=== PATIENT | female | born 1930 | race Caucasian/White ===

== ENCOUNTER 2017-09-06 23:50 | Inpatient (IN) | payer OTHER ==
[2017-09-07] MEDS ORDERED: DEXAMETHASONE 10 MG/ML VIAL ONE (00:09)
[2017-09-07] MEDS ORDERED: METHYLPREDNISOLONE 125 MG INJ ONE (00:09)
[2017-09-07] MEDS ORDERED: NITROGLYCERIN 1 GM PKT TD ONE (00:09)
[2017-09-07] MEDS ORDERED: ONDANSETRON 4 MG/2 ML VIAL ONE (00:09)
[2017-09-07] MEDS ORDERED: IPRATROPIUM BROM 0.5MG/2.5ML ONE ×6 (00:09→21:22)
[2017-09-07] MEDS ORDERED: ALBUTEROL 2.5 MG/3 ML NEB SOL ONE ×6 (00:09→21:22)
[2017-09-07] MEDS ORDERED: FUROSEMIDE 40 MG/4 ML VIAL ONE (00:10)
[2017-09-07] MEDS ORDERED: NA CHLORIDE 0.9% 1,000 ML ONE ×5 (00:51→17:39)
[2017-09-07 00:58] LABS: Arterial Blood Carboxyhemoglob 0.8 % (0-1.5); Blood Gas Oxyhemoglobin 97.3 % (94-97); Blood O2 Saturation 98.7 % (92-98.5)
[2017-09-07] MEDS ORDERED: Levofloxacin500mg IV 500 MG/100 ML BAG IV ONE (00:58)
[2017-09-07] MEDS ORDERED: ACETAMINOPHEN 650MG/RECT SUPP PR ONE (00:58)
[2017-09-07] MEDS ORDERED: PIPER/TAZO/NS 3.375gm 3.375 GM/100 ML BAG ONE ×3 (00:58→17:39)
[2017-09-07 01:03] LABS: Absolute Lymphocytes (CBC) 0.7 K/uL (0.7-4.9); Absolute Monocytes 2.7 K/uL (0.1-1.3); Absolute Neutrophil 17.7 K/uL (1.8-8.0); Basophils % 0.2 % (0-1.3); Hematocrit 41.1 % (36.0-45.0); Lymphocytes % 3.5 % (15.3-44.8); MCH 28.8 pg (27.0-35.0); MCV 89.5 fL (80-100); MPV 9.5 fL (7.6-11.3); Monocytes % 12.6 % (3.3-12.3); RBC Red Blood Cell Count 4.59 M/uL (3.86-4.86)
[2017-09-07 01:09] LABS: Protime INR 1.88
[2017-09-07 01:15] LABS: Potassium 3.2 mEq/L (3.6-5.0)
--- NOTE | 2017-09-07 01:15 | EDPHYS ---
Physician Documentation [facility] Name: Alona Angulo Age: 86 yrs Sex: Female : 1930 Arrival Date: 09/06/2017 Time: 23:52 Bed 4 Private MD: ED Physician Arvin Thorne HPI: 09/06 23:57 This 86 yrs old Female presents to ER via EMS with complaints of Shortness Of summer Breath. 23:57 The patient has shortness of breath at rest. Onset: The symptoms/episode began/occurred summer just prior to arrival. Duration: The symptoms are continuous, and are unchanged since they started. The patient's shortness of breath has no apparent modifying factors. Associated signs and symptoms: The patient has no apparent associated signs or symptoms. Severity of symptoms: At their worst the symptoms were moderate in the emergency department the symptoms are unchanged. The patient has not experienced similar symptoms in the past. Historical: - Allergies: 23:58 No Known Allergies; bp - PMHx: 23:58 Alzheimers; Atrial Fib; CHF; Colonic polyps; GERD; Hypertension; Myocardial infarction; bp PULMONARY EMBOLISM; - PSHx: 23:58 Thyroidectomy; Hysterectomy; VENA CAVA FILTER; bp - Immunization history:: Adult Immunizations up to date. - Social history:: Smoking status: Patient/guardian denies using tobacco. - Family history:: not pertinent. ROS: 23:57 Constitutional: Negative for fever, chills, and weight loss, Eyes: Negative for injury, summer pain, redness, and discharge, ENT: Negative for injury, pain, and discharge, Neck: Negative for injury, pain, and swelling, Cardiovascular: Negative for chest pain, palpitations, and edema, Abdomen/GI: Negative for abdominal pain, nausea, vomiting, diarrhea, and constipation, Back: Negative for injury and pain, : Negative for injury, bleeding, discharge, and swelling, MS/Extremity: Negative for injury and deformity, Skin: Negative for injury, rash, and discoloration, Neuro: Negative for headache, weakness, numbness, tingling, and seizure, Psych: Negative for depression, anxiety, suicide ideation, homicidal ideation, and hallucinations, Allergy/Immunology: Negative for hives, rash, and allergies, Endocrine: Negative for neck swelling, polydipsia, polyuria, polyphagia, and marked weight changes, Hematologic/Lymphatic: Negative for swollen nodes, abnormal bleeding, and unusual bruising. 23:57 Respiratory: Positive for cough, shortness of breath, wheezing, inspiratory, expiratory. Exam: 23:57 Constitutional: This is a well developed, well nourished patient who is awake, alert, summer and in no acute distress. Head/Face: Normocephalic, atraumatic. Eyes: Pupils equal round and reactive to light, extra-ocular motions intact. Lids and lashes normal. Conjunctiva and sclera are non-icteric and not injected. Cornea within normal limits. Periorbital areas with no swelling, redness, or edema. ENT: Nares patent. No nasal discharge, no septal abnormalities noted. Tympanic membranes are normal and external auditory canals are clear. Oropharynx with no redness, swelling, or masses, exudates, or evidence of obstruction, uvula midline. Mucous membranes moist. Neck: Trachea midline, no thyromegaly or masses palpated, and no cervical lymphadenopathy. Supple, full range of motion without nuchal rigidity, or vertebral point tenderness. No Meningismus. Chest/axilla: Normal chest wall appearance and motion. Nontender with no deformity. No lesions are appreciated. Cardiovascular: Regular rate and rhythm with a normal S1 and S2. No gallops, murmurs, or rubs. Normal PMI, no JVD. No pulse deficits. Abdomen/GI: Soft, non-tender, with normal bowel sounds. No distension or tympany. No guarding or rebound. No evidence of tenderness throughout. Back: No spinal tenderness. No costovertebral tenderness. Full range of motion. Female : Normal external genitalia. Skin: Warm, dry with normal turgor. Normal color with no rashes, no lesions, and no evidence of cellulitis. MS/ Extremity: Pulses equal, no cyanosis. Neurovascular intact. Full, normal range of motion. Neuro: Awake and alert, GCS 15, oriented to person, place, time, and situation. Cranial nerves II-XII grossly intact. Motor strength 5/5 in all extremities. Sensory grossly intact. Cerebellar exam normal. Normal gait. Psych: Awake, alert, with orientation to person, place and time. Behavior, mood, and affect are within normal limits. 23:57 Respiratory: moderate respiratory distress is noted, Respirations: labored breathing, that is moderate, Breath sounds: bronchial sounds, decreased breath sounds, rhonchi, wheezing: inspiratory expiratory that is moderate. Vital Signs: 23:58 Weight 72.57 kg (R); bp 18 00:06 BP 117 / 97; Pulse 116; Resp 20; Pulse Ox 99% on BiPAP; mt 00:27 BP 131 / 80; Pulse 106; Resp 24; Temp 102.4(C); Pulse Ox 99% on BiPAP; mt 00:39 BP 65 / 36; Pulse 99; Resp 18; Pulse Ox 99% on BiPAP; mt 01:00 BP 58 / 41; Pulse 102; Resp 18; Pulse Ox 100% on BiPAP; mt 01:02 BP 55 / 42; Pulse 95; Resp 18; Pulse Ox 96% on BiPAP; mt 01:02 BP 64 / 42 RA (man/); mt 01:21 BP 60 / 50; Pulse 97; Resp 20; Temp 101.8(C); Pulse Ox 98% on BiPAP; mt 01:30 BP 92 / 54; Pulse 85; Resp 22; Temp 100.5; Pulse Ox 96% ; bp 01:47 BP 90 / 71; Pulse 83; Resp 23; Temp 99.9(C); Pulse Ox 99% on BiPAP; mt 02:00 BP 100 / 53; Pulse 83; Resp 20; Temp 99.5; Pulse Ox 99% ; bp 04:05 BP 99 / 50; Pulse 88; Resp 20; Pulse Ox 98% on BiPAP; mt 05:13 BP 92 / 48; Pulse 77; Resp 20; Temp 98.8(C); Pulse Ox 98% on BiPAP; mt MDM: 09/06 23:55 Patient medically screened. [facility] 23:57 Data reviewed: vital signs, nurses notes, lab test result(s), EKG, radiologic studies, summer plain films. 09/06 23:57 Order name: Basic Metabolic Panel [facility] 09/06 23:57 Order name: BNP [facility] 09/06 23:57 Order name: CBC with Diff [facility] 09/06 23:57 Order name: Ckmb [facility] 09/06 23:57 Order name: CPK [facility] 09/06 23:57 Order name: LFT's [facility] 09/06 23:57 Order name: Magnesium [facility] 09/06 23:57 Order name: PT-INR [facility] 09/06 23:57 Order name: Ptt, Activated [facility] 09/06 23:57 Order name: Troponin (emerg Dept Use Only) [facility] 09/06 23:57 Order name: Lipase [facility] 09/06 23:57 Order name: Blood Culture Adult (2) [facility] 09/06 23:57 Order name: Procalcitonin [facility] 09/06 23:57 Order name: Urine Culture [facility] 09/06 23:57 Order name: BIPAP [facility] 09/07 00:04 Order name: ABG; Complete Time: 01:[address] [facility] 09/07 00:13 Order name: Chest Single View [facility] 09/07 00:35 Order name: Urine Dipstick--Ancillary (enter results) em1 09/07 03:06 Order name: Manual Differential [facility] 09/07 08:33 Order name: Troponin I [facility] 09/07 12:24 Order name: Troponin I [facility] 09/07 14:31 Order name: Vancomycin Level Trough [facility] 09/07 20:59 Order name: Troponin I [facility] 09/06 23:57 Order name: EKG; Complete Time: 00:[address] [facility] 09/06 23:57 Order name: Cardiac monitoring; Complete Time: 00:[address] [facility] 09/06 23:57 Order name: EKG - Nurse/Tech; Complete Time: 00:[address] [facility] 09/06 23:57 Order name: IV Saline Lock; Complete Time: 00:[address] [facility] 09/06 23:57 Order name: Labs collected and sent; Complete Time: 00:[address] [facility] 09/06 23:57 Order name: O2 Per Protocol; Complete Time: 00:[address] [facility] 09/06 23:57 Order name: O2 Sat Monitoring; Complete Time: 00:[address] [facility] 09/06 23:57 Order name: Urine Dipstick-Ancillary (obtain specimen); Complete Time: 00:[address] [facility] 09/06 23:57 Order name: Menendez; Complete Time: 00:[address] [facility] Administered Medications: 09/07 00:15 Drug: Lasix 40 mg Route: IVP; Site: left antecubital; bp 00:39 Follow up: Response: No adverse reaction bp 00:15 Drug: SOLU-Medrol 125 mg Route: IVP; Site: left antecubital; bp 00:39 Follow up: Response: No adverse reaction bp 00:15 Drug: Decadron - Dexamethasone 10 mg Route: IVP; Site: left antecubital; bp 00:38 Follow up: Response: No adverse reaction bp 00:15 Drug: Zofran 4 mg Route: IVP; Site: left antecubital; bp 00:38 Follow up: Response: No adverse reaction bp 00:32 Drug: Albuterol - atroVENT (3:1) (2.5 mg - 0.5 mg) 3 ml Route: Nebulizer; bp 01:17 Follow up: Response: Marked relief of symptoms bp 00:32 Not Given (med not available): morphine 2 mg IVP once bp 01:00 Drug: Zosyn 3.375 grams Route: IVPB; Infused Over: 60 mins; Site: left antecubital; bp 02:10 Follow up: IV Status: Completed infusion; IV Intake: 100ml bp 01:00 Drug: LevaQUIN 500 mg Volume: 100 ml; Route: IVPB; Infused Over: 60 mins; Site: left bp antecubital; 02:09 Follow up: IV Status: Completed infusion; IV Intake: 100ml bp 01:00 Drug: NS 0.9% 1000 ml Route: IV; Rate: 1 bolus; Site: right forearm; bp 02:09 Follow up: IV Status: Completed infusion; IV Intake: 1000ml bp 01:00 Drug: Tylenol Suppository 650 mg Route: HI; bp 02:08 Follow up: Response: Temperature is decreased bp 01:01 Drug: NS 0.9% 1000 ml Route: IV; Rate: 1 bolus; Site: left antecubital; ao 02:09 Follow up: IV Status: Completed infusion bp 01:17 Not Given (Hemodynamic Parameters): Nitro-Bid Ointment 2 % 1 inches Transdermal once bp 13:00 Drug: vancoMYCIN 1 grams Route: IVPB; Infused Over: 2 hrs; Site: right forearm; ae1 Disposition: 09/07/17 01:14 Hospitalization ordered by Maty Rojas for Inpatient Admission. Preliminary diagnosis are Dyspnea, Hypoxemia, Hypotension, Atrial fibrillation and flutter, Unspecified bacterial pneumonia. - Bed requested for Intensive Care Unit. - Status is Inpatient Admission. jd3 - Condition is Serious. - Problem is new. - Symptoms have improved. UTI on Admission? No Signatures: Dispatcher [employer] EDRichelle Killian rg2 Sherice Nevarez RN RN mw Anderson, Corey, MD MD cha Ortiz, Alex, RN RN ao Elliott, Andrea, RN RN ae1 Jose Marinelli RN RN jd3 Braulio Kim RN RN bp Corrections: (The following items were deleted from the chart) 00:52 00:26 Chest Single View+RAD.RAD.BRZ ordered. EDMS EDMS
--- NOTE | 2017-09-07 01:15 | ER ---
Nurse's Notes [facility] Name: Alona Angulo Age: 86 yrs Sex: Female : 1930 Arrival Date: 09/06/2017 Time: 23:52 Bed 4 Private MD: Diagnosis: Dyspnea;Hypoxemia;Hypotension;Atrial fibrillation and flutter;Unspecified bacterial pneumonia Presentation: 09/06 23:52 Presenting complaint: EMS states: THE FAMILY SAID SHE'S BEEN SHORT OF BREATH FOR 45 bp MINUTES. Transition of care: patient was not received from another setting of care. Onset of symptoms was September 06, 2017 at 23:00. Care prior to arrival: Oxygen administered. via CPAP or BiPAP. 23:52 Method Of Arrival: EMS: [facility] bp 23:52 Acuity: ELISABETH 1 bp Triage Assessment: 23:58 General: Appears distressed, uncomfortable, obese, Behavior is cooperative, appropriate bp for age, agitated, anxious. Pain: Denies pain. EENT: No deficits noted. Neuro: PT UNABLE TO SPEAK 2/2 SOB. Cardiovascular: Rhythm is sinus tachycardia. Respiratory: Reports shortness of breath cough that is air hunger Breath sounds with crackles Onset: The symptoms/episode began/occurred just prior to arrival, the patient has severe shortness of breath. GI: No signs and/or symptoms were reported involving the gastrointestinal system. : No signs and/or symptoms were reported regarding the genitourinary system. Derm: No deficits noted. Derm: Skin is diaphoretic, Skin is pale, Skin temperature is cool. Musculoskeletal: Circulation, motion, and sensation intact. Range of motion:. Historical: - Allergies: 23:58 No Known Allergies; bp - PMHx: 23:58 Alzheimers; Atrial Fib; CHF; Colonic polyps; GERD; Hypertension; Myocardial infarction; bp PULMONARY EMBOLISM; - PSHx: 23:58 Thyroidectomy; Hysterectomy; VENA CAVA FILTER; bp - Immunization history:: Adult Immunizations up to date. - Social history:: Smoking status: Patient/guardian denies using tobacco. - Family history:: not pertinent. Screenin/18 00:00 Abuse screen: Denies threats or abuse. Denies injuries from another. Nutritional bp screening: No deficits noted. Tuberculosis screening: No symptoms or risk factors identified. Fall Risk None identified. Assessment: 00:00 Reassessment: 86YO WF PRESENTS VIA EMS, C/O SOB x45 MIN. PT PALE, COOL AND DIAPHORETIC bp ON ARRIVAL, UNABLE TO SPEAK, LABORED BREATHING WITH POSTURING AND RETRACTIONS. Cardiovascular: Rhythm is sinus tachycardia. 00:10 Respiratory: Airway is patent Respiratory effort is labored, gasping, shallow, using bp tripod position. 01:00 Reassessment: PROFOUND HYPOTENSION AND DECREASED LOC NOTED, CONFIRMED WITH MANUAL BP bp AND REPORTED TO MD. 03:00 Reassessment: PT TOLERATING BIPAP WELL, ICU ADMIT PENDING. bp 04:00 Reassessment: PT ICU ER HOLD, SEE [facility] FOR FURTHER DOCUMENTATION. bp Vital Signs: 09/06 23:58 Weight 72.57 kg (R); bp 09/07 00:06 BP 117 / 97; Pulse 116; Resp 20; Pulse Ox 99% on BiPAP; mt 00:27 BP 131 / 80; Pulse 106; Resp 24; Temp 102.4(C); Pulse Ox 99% on BiPAP; mt 00:39 BP 65 / 36; Pulse 99; Resp 18; Pulse Ox 99% on BiPAP; mt 01:00 BP 58 / 41; Pulse 102; Resp 18; Pulse Ox 100% on BiPAP; mt 01:02 BP 55 / 42; Pulse 95; Resp 18; Pulse Ox 96% on BiPAP; mt 01:02 BP 64 / 42 RA (man/); mt 01:21 BP 60 / 50; Pulse 97; Resp 20; Temp 101.8(C); Pulse Ox 98% on BiPAP; mt 01:30 BP 92 / 54; Pulse 85; Resp 22; Temp 100.5; Pulse Ox 96% ; bp 01:47 BP 90 / 71; Pulse 83; Resp 23; Temp 99.9(C); Pulse Ox 99% on BiPAP; mt 02:00 BP 100 / 53; Pulse 83; Resp 20; Temp 99.5; Pulse Ox 99% ; bp 04:05 BP 99 / 50; Pulse 88; Resp 20; Pulse Ox 98% on BiPAP; mt 05:13 BP 92 / 48; Pulse 77; Resp 20; Temp 98.8(C); Pulse Ox 98% on BiPAP; mt ED Course: 09/06 23:52 Patient arrived in ED. bp 23:53 Triage completed. bp 23:55 Arvin Thorne MD is Attending Physician. summer 23:58 Arm band placed on. bp 09/07 00:00 Patient has correct armband on for positive identification. Placed in gown. Bed in low bp position. Call light in reach. Side rails up X2. 00:05 Braulio Kim, ELIDA is Primary Nurse. bp 00:07 EKG done, by ED staff, reviewed by Arvin Thorne MD. mt 00:08 Menendez cath inserted, using sterile technique, 16 Fr., by id, balloon inflated, to mt gravity drainage. 00:10 Inserted saline lock: 20 gauge in right forearm, using aseptic technique. bp 00:10 Inserted saline lock: 20 gauge in left antecubital area, using aseptic technique. bp 00:15 X-ray completed. Portable x-ray completed in exam room. Patient tolerated procedure kw well. 00:16 Chest Single View In Process Unspecified. EDMS 01:13 Maty Rojas MD is Hospitalizing Provider. summer 01:15 Notified ED physician of a critical lab result(s). WBCs of 21.1 Dr Thorne notified. bb 01:27 Patient admitted, IV remains in place. bp 04:48 No provider procedures requiring assistance completed. bp Administered Medications: 00:15 Drug: Lasix 40 mg Route: IVP; Site: left antecubital; bp 00:39 Follow up: Response: No adverse reaction bp 00:15 Drug: SOLU-Medrol 125 mg Route: IVP; Site: left antecubital; bp 00:39 Follow up: Response: No adverse reaction bp 00:15 Drug: Decadron - Dexamethasone 10 mg Route: IVP; Site: left antecubital; bp 00:38 Follow up: Response: No adverse reaction bp 00:15 Drug: Zofran 4 mg Route: IVP; Site: left antecubital; bp 00:38 Follow up: Response: No adverse reaction bp 00:32 Drug: Albuterol - atroVENT (3:1) (2.5 mg - 0.5 mg) 3 ml Route: Nebulizer; bp 01:17 Follow up: Response: Marked relief of symptoms bp 00:32 Not Given (med not available): morphine 2 mg IVP once bp 01:00 Drug: Zosyn 3.375 grams Route: IVPB; Infused Over: 60 mins; Site: left antecubital; bp 02:10 Follow up: IV Status: Completed infusion; IV Intake: 100ml bp 01:00 Drug: LevaQUIN 500 mg Volume: 100 ml; Route: IVPB; Infused Over: 60 mins; Site: left bp antecubital; 02:09 Follow up: IV Status: Completed infusion; IV Intake: 100ml bp 01:00 Drug: NS 0.9% 1000 ml Route: IV; Rate: 1 bolus; Site: right forearm; bp 02:09 Follow up: IV Status: Completed infusion; IV Intake: 1000ml bp 01:00 Drug: Tylenol Suppository 650 mg Route: LA; bp 02:08 Follow up: Response: Temperature is decreased bp 01:01 Drug: NS 0.9% 1000 ml Route: IV; Rate: 1 bolus; Site: left antecubital; ao 02:09 Follow up: IV Status: Completed infusion bp 01:17 Not Given (Hemodynamic Parameters): Nitro-Bid Ointment 2 % 1 inches Transdermal once bp 13:00 Drug: vancoMYCIN 1 grams Route: IVPB; Infused Over: 2 hrs; Site: right forearm; ae1 Intake: 02:09 IV: 1000ml; Total: 1000ml. bp 02:09 IV: 100ml; Total: 1100ml. bp 02:10 IV: 100ml; Total: 1200ml. bp Outcome: 01:14 Decision to Hospitalize by Provider. summer 04:00 Admitted to ER Hold. Please see [facility] for further documentation. bp 04:00 Condition: stable 04:00 Instructed on the need for admit. 09/08 04:45 Admitted to ICU accompanied by nurse, accompanied by tech, via stretcher, room 2, with jd3 oxygen, on monitor, with chart, Report called to bedside report given to Alicia Collier RN Condition: stable Instructed on the need for admit. 04:47 Patient left the ED. jd3 Signatures: Dispatcher [employer] EDMS Ellen Castro RN RN Arvin Davidson MD MD cha Ballard, Brenda, RN RN bb Whitley, Kimberlee kw Ortiz, Alex, RN RN ao Elliott, Andrea, RN RN ae1 Agustina Portillo mt, Jonathon, RN RN Braulio Adames RN RN bp Corrections: (The following items were deleted from the chart) 09/07 00:30 00:27 BP 131 / 80; Pulse 106bpm; Resp 24bpm; Pulse Ox 99% RA; Temp 102.4F Catheter; mt mt 16:13 16:13 Initial Sepsis Screen: Does the patient meet any 2 criteria? dm5 dm5
[2017-09-07 01:20] LABS: CKMB Creatine Kinase MB 2.4 ng/ml (0.3-4.0)
[2017-09-07 01:21] LABS: Albumin 3.8 g/dL (3.2-5.5); Bilirubin Direct 0.1 mg/dL (0-0.2); Bilirubin Total 0.7 mg/dL (0.3-1.2); Magnesium 1.8 mg/dL (1.8-2.5); Protein, Total 7.8 g/dL (6.0-8.3)
--- NOTE | 2017-09-07 01:52 | P.HP ---
Certification for Inpatient Patient admitted to: Inpatient With expected LOS: >2 Midnights Practitioner: I am a practitioner with admitting privileges, knowledge of patient current condition, hospital course, and medical plan of care. Services: Services provided to patient in accordance with Admission requirements found in Title 42 Section 412.3 of the Code of Federal Regulations Patient History Date of Service: 09/07/17 Reason for admission: sepsis History of Present Illness: Ms Angulo is an 86 years old woman with history of CAD, A.Fib, dementia, asthma, HTN, who start about 1 week ago with progressive SOB associated with wheezing, not relieving easy with breathing treatments. She has had also wet cough but she is unable to spit secretions. This morning, the patient become more obtunded , SOB got worse. No history of fever or chills. However in ER she was febrile 102.0 F, BP on the lower side, WBC elevated 21.1K, normal procalcitonin. CXR shows right lower lobe pneumonia. The patient was placed on BiPAP. Allergies No Known Allergies Allergy (Verified 06/03/17 22:26) Home Medications: Cholecalciferol (Vitamin D3) [Vitamin D3] 5,000 unit PO DAILY 06/04/17 Clopidogrel Bisulfate [Plavix*] 75 mg PO DAILY 06/04/17 Fluticasone [Flonase 50MCG Nasal [place]*] 1 puff IH DAILY PRN 06/04/17 Fluticasone/Vilanterol [Breo Ellipta 200-25 Mcg INH] 1 puff IH DAILY 06/04/17 Furosemide [Lasix*] 40 mg PO DAILY 06/04/17 Ipratropium/Albuterol Sulfate [Iprat-Albut 0.5-3(2.5) mg/3 ml] 1 amp IH PRN PRN 06/04/17 Levocetirizine Dihydrochloride [Xyzal] 5 mg PO BEDTIME 06/04/17 Levothyroxine [Synthroid*] 112 mcg PO BEDTIME 06/04/17 Losartan Potassium 100 mg PO BEDTIME 06/04/17 Metoprolol Succinate 25 mg PO BEDTIME 06/04/17 Montelukast [Singulair*] 10 mg PO BEDTIME 06/04/17 Multivitamin [Daily Multiple Vitamin] 1 tab PO DAILY 06/04/17 Omeprazole [Prilosec] 40 mg PO DAILY 06/04/17 Oseltamivir [Tamiflu*] 75 mg PO BID #8 cap 06/04/17 Potassium Chloride 10 meq PO DAILY 06/04/17 Pravastatin Sodium [Pravachol] 20 mg PO BEDTIME 06/04/17 Prednisone [Deltasone*] 10 mg PO BID #20 tab 06/04/17 Rivaroxaban [Xarelto*] 15 mg PO BEDTIME 06/04/17 - Past Medical/Surgical History -: Alzheimers -: Afib -: CHF -: HTN -: CAD -: Thyroidectomy -: Partial hysterectomy - Social History Smoking Status: Never smoker Alcohol use: No CD- Drugs: No Place of Residence: Home Review of Systems 10-point ROS is otherwise unremarkable Physical Examination - Physical Exam General: Alert, In no apparent distress HEENT: Atraumatic, PERRLA, Mucous membr. moist/pink, EOMI, Sclerae nonicteric Neck: Supple, 2+ carotid pulse no bruit, No LAD, Without JVD or thyroid abnormality Respiratory: Diminished, Crackles/rales (right base ) Cardiovascular: Normal S1 S2, Irregular heart rate/rhythm Gastrointestinal: Normal bowel sounds, No tenderness Musculoskeletal: No tenderness Integumentary: No rashes Neurological: Normal tone, Normal affect Lymphatics: No axilla or inguinal lymphadenopathy - Studies Laboratory Data (last 24 hrs) 09/07/17 00:15: PT 22.3 H, INR 1.88, APTT 26.4 09/07/17 00:15: WBC 21.1 H*, Hgb 13.2, Hct 41.1, Plt Count 234 09/07/17 00:15: B-Natriuretic Peptide 267 H 09/07/17 00:15: Sodium 139, Potassium 3.2 L, BUN 16, Creatinine 0.90, Glucose 202 H, Magnesium 1.8, Total Bilirubin 0.7, AST 36, ALT 21, Alkaline Phosphatase 85, Lipase 25 Assessment and Plan - Problems (Diagnosis) (1) Pneumonia Current Visit: Yes Status: Acute Qualifiers: Pneumonia type: aspiration pneumonia Aspiration pneumonia type: unspecified Laterality: right Lung location: lower lobe of lung Qualified Code(s): J69.0 - Pneumonitis due to inhalation of food and vomit (2) Afib Onset Date: 06/03/17 Current Visit: No Status: Acute Qualifiers: Atrial fibrillation type: chronic Qualified Code(s): I48.2 - Chronic atrial fibrillation (3) CAD (coronary artery disease) Onset Date: 06/03/17 Current Visit: No Status: Acute Qualifiers: Coronary Disease-Associated Artery/Lesion type: ione artery [place] vs. transplanted heart: ione heart Associated angina: without angina Qualified Code(s): I25.10 - Atherosclerotic heart disease of ione coronary artery without angina pectoris (4) Dementia Onset Date: 06/03/17 Current Visit: No Status: Acute Qualifiers: Dementia type: Alzheimer's disease Alzheimer's disease onset: unspecified onset Dementia behavioral disturbance: without behavioral disturbance Qualified Code(s): G30.9 - Alzheimer's disease, unspecified; F02.80 - Dementia in other diseases classified elsewhere without behavioral disturbance; F02.80 - Dementia in other diseases classified elsewhere without behavioral disturbance; F02.80 - Dementia in other diseases classified elsewhere without behavioral disturbance - Plan The patient will be admitted to the hospital due to sepsis secondary to RLL pneumonia. Cultures in process. Will order empiric IV Zosyn, breathing treatments, and IV steroids. Continue IV fluids, BP already improved. - Advance Directives Does patient have a Living Will: No Does patient have a Durable POA for Healthcare: No - Code Status/Comfort Care Code Status Assessed: Yes Code Status: Do Not Resuscitate
[2017-09-07 02:59] LABS: Urine Blood 1+ (NEG); Urine Glucose NEGATIVE (NEG); Urine Protein 3+ (NEG); Urine Specific Gravity 1.025 (1.005-1.030)
[2017-09-07 03:05] LABS: Blood Morphology Comment NOT SEEN (NOT SEEN); Platelet Estimate ADEQ
[2017-09-07] MEDS: NA CHLORIDE 0.9% 1,000 ML IV SCH ×3 (03:17→23:17)
[2017-09-07] MEDS ORDERED: ONDANSETRON 4 MG/2 ML VIAL IV PRN (03:17)
[2017-09-07] MEDS: IPRATROPIUM BROM 0.5MG/2.5ML NEB SCH ×5 (04:00→21:28)
[2017-09-07] MEDS: ALBUTEROL 2.5 MG/3 ML NEB SOL NEB SCH ×5 (04:00→21:28)
[2017-09-07] MEDS ORDERED: PIPERACIL/TAZO 3.375 GM VIAL IV ONE (05:56)
[2017-09-07] MEDS ORDERED: NA CHLORIDE 0.9% 100 ML IV ONE (05:59)
[2017-09-07] MEDS ORDERED: PIPER/TAZO/NS 3.375gm 3.375 GM/100 ML BAG IVPB SCH (06:00)
--- NOTE | 2017-09-07 07:28 | EKG ---
Test Date: 2017-09-07 Test Time: 00:01:21 Mascara Molder: ANDERSON MEASUREMENT RESULTS: Intervals: Rate: 117 [place]: QRSD: 70 QT: 338 QTc: 471 [place]: P: [place]: QRS: 29 T: 143 INTERPRETIVE STATEMENTS: Atrial fibrillation with rapid ventricular response with premature ventricular or aberrantly conducted complexes Low voltage QRS Cannot rule out Anterior infarct, age undetermined Abnormal ECG Compared to ECG 06/02/2017 22:32:13 No significant changes Electronically Signed On 09-07-17 07:26:50 CDT by Chivo Mobley
--- NOTE | 2017-09-07 08:39 | RAD REPORT ---
EXAM DESCRIPTION: RAD - Chest Single View - 09/07/2017 12:18 am CLINICAL HISTORY: Shortness of breath COMPARISON: 06/04/2017 FINDINGS: Portable technique limits examination quality. Airspace opacity in the right lung base is present, compatible with developing pneumonia. The heart i s normal in size. No displaced fractures. IMPRESSION: Right lower lobe pneumonia.
[2017-09-07] MEDS ORDERED: ENOXAPARIN 30 MG/0.3 ML SQ SCH (09:00)
[2017-09-07] MEDS: PIPER/TAZO/NS 3.375gm 3.375 GM/100 ML BAG IVPB SCH ×2 (09:00→17:00)
[2017-09-07] MEDS ORDERED: METHYLPREDNISOLONE 40 MG INJ ONE ×2 (09:02→17:32)
[2017-09-07] MEDS ORDERED: ENOXAPARIN 30 MG/0.3 ML SQ ONE (09:03)
[2017-09-07] MEDS: METHYLPREDNISOLONE 40 MG INJ IV SCH ×2 (09:35→17:00)
[2017-09-07] MEDS ORDERED: NA CHLORIDE 0.9% 1,000 ML IV ONE (12:33)
[2017-09-07] MEDS ORDERED: VANCOMYCIN 1.5 GM in NA CHLORIDE 0.9% 500 ML IVPB SCH (13:00)
--- NOTE | 2017-09-07 17:37 | PN ---
Date of Progress Note: 09/07/2017 Subjective: The patient is seen and examined, chart reviewed, and case discussed with RN. The patie nt's daughter at the bedside. Explained to the daughter that, the patient's prognosis is poor at thi s time and she may or may not recover from this hospitalization. The patient is a DNR and daughter s tates, she wants her mom to be comfortable, however, not wanting hospice immediately. Review of Systems: Negative except as above. Medications: Reviewed. Physical Examination: Vital Signs: Temperature 98.8, heart rate 75, blood pressure 70, BP 98/62, respirations 18, and O2 9 8% on Venturi mask, 40% FiO2. General: Awake, alert, oriented x2, in some mild respiratory distress. Elderly female, ill-appearin g. CV: S1, S2, irregularly irregular. Peripheral pulses present bilaterally. Respiratory: diminished breath sounds bilaterally with some wheezing heard throughout. Some rhonchi . The patient is slightly tachypneic. Gastrointestinal: Abdomen is soft, nontender, nondistended. Positive bowel sounds. No guarding or rigidity. No palpable masses. Extremities: No clubbing, cyanosis. Trace pedal edema. Neurologic: Nonfocal. The patient moves all 4 extremities. Speech is normal. Laboratory Data: Troponin 0.07, 0.09, and 0.08. WBC 21.1, H and H 13.2, 41.1, platelets 238, and ne utrophils 83%. Blood culture and urine culture pending. Chest x-ray, personally reviewed, showed ri ght lower lobe pneumonia. Assessment: An 86-year-old female with; 1.Acute respiratory distress with hypoxia. The patient currently on Venturi mask. We will obtain p ulmonology consultation, likely secondary to pneumonia, right lower lobe. 2.Pneumonia, right lower lobe, likely aspiration type pneumonia, likely secondary to inhalation of f ood in vomitus. We will obtain speech evaluation, keep n.p.o. and obtain bedside swallow study. 3.Chronic atrial fibrillation, controlled ventricular rate. The patient is on anticoagulation. 4.Coronary artery disease, [place] artery and [place] heart without angina, stable. No chest pain. 5.Elevated troponin level, likely secondary to hypoxia and demand mismatch. 6.Hypokalemia. We will replace and monitor. 7.Hypotension, rule out hypotensive shock. The patient has been bolused. We will continue to monit or. Keep MAP above 65. If not improving, we will start on Levophed. Daughter understands side-effe cts of pressors including digit necrosis. daughter agrees to proceed. 8.Gastrointestinal and deep venous thrombosis prophylaxis with PPI and the patient already on antico agulation with Xarelto. We will resume. Plan: Reconcile home medications once available. We will add vancomycin for gram-positive coverage. Pulmonology consultation, follow up on cultures. Overall, poor prognosis. SA/MODL Voice ID: [id number] Report ID: [id number]
[2017-09-08] MEDS ORDERED: METHYLPREDNISOLONE 40 MG INJ ONE (00:57)
[2017-09-08] MEDS: METHYLPREDNISOLONE 40 MG INJ IV SCH (01:00)
[2017-09-08] MEDS: PIPER/TAZO/NS 3.375gm 3.375 GM/100 ML BAG IVPB SCH ×3 (01:00→18:22)
[2017-09-08] MEDS ORDERED: IPRATROPIUM BROM 0.5MG/2.5ML ONE (02:55)
[2017-09-08] MEDS ORDERED: ALBUTEROL 2.5 MG/3 ML NEB SOL ONE ×2 (02:55→23:36)
[2017-09-08] MEDS: IPRATROPIUM BROM 0.5MG/2.5ML NEB SCH ×7 (03:17→23:34)
[2017-09-08] MEDS: ALBUTEROL 2.5 MG/3 ML NEB SOL NEB SCH ×3 (03:17→08:00)
[2017-09-08] MEDS: NA CHLORIDE 0.9% 1,000 ML IV SCH (04:55)
[2017-09-08 05:47] LABS: Absolute Lymphocytes (CBC) 0.6 K/uL (0.7-4.9); Absolute Monocytes 0.8 K/uL (0.1-1.3); Absolute Neutrophil 18.3 K/uL (1.8-8.0); Basophils % 0.1 % (0-1.3); Lymphocytes % 2.8 % (15.3-44.8); MCH 28.8 pg (27.0-35.0); MCV 90.6 fL (80-100); MPV 9.5 fL (7.6-11.3); Monocytes % 3.8 % (3.3-12.3); RBC Red Blood Cell Count 3.42 M/uL (3.86-4.86)
[2017-09-08 05:52] LABS: Potassium 3.4 mEq/L (3.6-5.0)
--- NOTE | 2017-09-08 08:32 | P.CNS ---
Date of Consult: 09/08/17 Reason for Consult: Right lung pneumonia Chief Complaint: sepsis History of Present Illness: Patient is 86 years of age denies any problems today review of records states that she has been sick for about a week complaining of progressive shortness of breath cough fever and was admitted with a right lung pneumonia she feels fine now wants to go home not cooperative with questioning appears to be agitated history of dementia Allergies No Known Allergies Allergy (Verified 06/03/17 22:26) Home Medications: Cholecalciferol (Vitamin D3) [Vitamin D3] 5,000 unit PO DAILY 06/04/17 Clopidogrel Bisulfate [Plavix*] 75 mg PO DAILY 06/04/17 Fluticasone [Flonase 50MCG Nasal [place]*] 1 puff IH DAILY PRN 06/04/17 Fluticasone/Vilanterol [Breo Ellipta 200-25 Mcg INH] 1 puff IH DAILY 06/04/17 Furosemide [Lasix*] 40 mg PO DAILY 06/04/17 Ipratropium/Albuterol Sulfate [Iprat-Albut 0.5-3(2.5) mg/3 ml] 1 amp IH PRN PRN 06/04/17 Levocetirizine Dihydrochloride [Xyzal] 5 mg PO BEDTIME 06/04/17 Levothyroxine [Synthroid*] 112 mcg PO BEDTIME 06/04/17 Losartan Potassium 100 mg PO BEDTIME 06/04/17 Metoprolol Succinate 25 mg PO BEDTIME 06/04/17 Montelukast [Singulair*] 10 mg PO BEDTIME 06/04/17 Multivitamin [Daily Multiple Vitamin] 1 tab PO DAILY 06/04/17 Omeprazole [Prilosec] 40 mg PO DAILY 06/04/17 Oseltamivir [Tamiflu*] 75 mg PO BID #8 cap 06/04/17 Potassium Chloride 10 meq PO DAILY 06/04/17 Pravastatin Sodium [Pravachol] 20 mg PO BEDTIME 06/04/17 Prednisone [Deltasone*] 10 mg PO BID #20 tab 06/04/17 Rivaroxaban [Xarelto*] 15 mg PO BEDTIME 06/04/17 - Past Medical/Surgical History Diabetic: No -: Alzheimers -: Afib -: CHF -: HTN -: CAD -: Thyroidectomy -: Partial hysterectomy - Social History Smoking Status: Never smoker Alcohol use: No CD- Drugs: No Caffeine use: No Place of Residence: Home Review of Systems 10-point ROS is otherwise unremarkable Physical Examination Temp Pulse Resp BP Pulse Ox 98.7 F 89 5 L 104/86 98 09/08/17 07:00 09/08/17 07:00 09/08/17 07:00 09/08/17 07:00 09/08/17 07:00 General: Alert, Cooperative Respiratory: Clear to auscultation bilaterally (Crackles on the right side) Cardiovascular: No edema, Regular rate/rhythm Gastrointestinal: Normal bowel sounds, Soft and benign - Problems (1) Pneumonia Onset Date: 09/07/17 Current Visit: Yes Status: Acute Plan: Patient is 86 years of age admitted with a pneumonia apparently she has difficulty swallowing schedule for swallow test today she eats in small bites white count was elevated chest x-ray shows a right lung pneumonia patient is doing well medication list reviewed Dc vancomycin patient can be discharged home on levofloxacin check room-air oxygenation vital signs all stable follow with me in 2 weeks to ensure that the x-ray is cleared medication list not confirmed patient has a history of AFib and is anti coagulated Qualifiers: Pneumonia type: aspiration pneumonia Aspiration pneumonia type: unspecified Laterality: right Lung location: lower lobe of lung Qualified Code(s): J69.0 - Pneumonitis due to inhalation of food and vomit
[2017-09-08] MEDS: KCL 20 MEQ/100 mL IVPB 20 MEQ/100 ML BAG IV SCH ×2 (08:48→10:00)
--- NOTE | 2017-09-08 12:06 | RAD REPORT ---
EXAM DESCRIPTION: RAD - Barium Swallow Modified - 09/08/2017 11:59 am CLINICAL HISTORY: Pneumonia/aspiration FINDINGS: laryngeal pentration: not cleared thin aspiration: no cough with thin liquid mild to mod pharyngeal residue: vallecular , pyriform, posterior wall with all consistencies other: delayed swallow reflex , reduced hyolaryngeal excursion, reduced opening of then upper esophag eal spincter(ues), outpouching noted immediately superior to ues with retrograde noted into pyriforms
--- NOTE | 2017-09-08 15:19 | PN ---
Date of Progress Note: 09/08/2017 Subjective: The patient seen and examined, chart reviewed, and case discussed with RN. The patient is feeling remarkably better. More awake, alert, no longer hypotensive. The patient failed her initial speech evaluation yesterday , going for modified barium swallow study today. Review of Systems: Negative except as above. Medications: Reviewed. Objective: Vital Signs: Temperature 98.5, heart rate 85, blood pressure 81/70 , respirations 20, O2 95% on room air. General: Awake, alert, oriented x2, in some mild distress. Elderly female, somewhat ill-appearing. CV: S1 and S2. Irregularly irregular. No murmurs. Peripheral pulses present. Respiratory: Moving air well bilaterally. No wheezing. No stridor. No use of accessory muscles Gastrointestinal: Abdomen is soft, nontender, nondistended. Positive bowel sounds. No guarding or rigidity. Extremities: No clubbing, cyanosis, or edema. Neuro: Nonfocal. Laboratory Data: Sodium 142, potassium 3.4, chloride 111, CO2 28, BUN 15, creatinine 0.8, glucose 153, calcium 8, and magnesium 2. WBC 19.6, H and H 9.8 , 31, platelets 170, and neutrophils 93%. Blood cultures no growth to date. Urine culture shows no growth. Assessment And Plan: An 86-year-old female with; 1. Acute respiratory distress with hypoxia, now off supplemental oxygen, improved, secondary to pneumonia. 2. Right lower lobe pneumonia, likely aspiration type. We will continue IV antibiotics. Speech evaluation, recommended modified barium swallow study. We will follow up. Keep n.p.o. at this time. 3. Chronic atrial fibrillation, controlled ventricular rate. Resume anticoagulation. 4. Coronary artery disease, [place] artery and [place] heart without angina, stable. No chest pain. 5. Elevated troponin levels secondary to hypoxia-demand mismatch. No chest pain at this time. 6. Hypokalemia, replace and monitor. 7. Hypotension, possible hypotensive shock. Blood pressures improved after bolus. Did not require pressors. 8. Gastrointestinal and deep vein thrombosis prophylaxis PPI and the patient already on Xarelto. 9. Sepsis Plan: Move out of the ICU. Continue IV antibiotics. Follow up on cultures PT , OT. SA/MODL Voice ID: [id number] Report ID: [id number] MTDD
[2017-09-08] MEDS ORDERED: FLUTICASONE 50MCG NASAL SPRAY NAS PRN (19:00)
[2017-09-08] MEDS ORDERED: POTASSIUM CL SA 10 MEQ TAB PO ONE (19:00)
[2017-09-08] MEDS: CETIRIZINE HCL 5 MG TABLET PO SCH (20:12)
[2017-09-08] MEDS: MONTELUKAST 10 MG TAB PO SCH (20:12)
[2017-09-08] MEDS: LEVOTHYROXINE SOD 0.112 MG TAB PO SCH (20:12)
[2017-09-08] MEDS: RIVAROXABAN 15 MG TABLET PO SCH (20:12)
[2017-09-08] MEDS: ATORVASTATIN 10 MG TAB PO SCH (20:12)
[2017-09-08] MEDS ORDERED: HOME MED 1 EA UNK (Levocetirizine Dihydrochloride [Xyzal] 5 MG) PO SCH (21:00)
[2017-09-08] MEDS ORDERED: METHYLPREDNISOLONE 125 MG INJ ONE (23:20)
[2017-09-08] MEDS ORDERED: EPINEPHRINE INH 0.5 ML VIAL IH ONE (23:21)
[2017-09-08] MEDS ORDERED: DIPHENHYDRAMINE 50 MG/ML VIAL ONE (23:25)
[2017-09-08] MEDS ORDERED: DIPHENHYDRAMINE 50 MG/ML VIAL IV ONE (23:30)
[2017-09-08] MEDS ORDERED: METHYLPREDNISOLONE 125 MG INJ IV ONE (23:30)
[2017-09-08] MEDS: ALBUTEROL 2.5 MG/3 ML NEB SOL NEB PRN (23:35)
[2017-09-08] MEDS ORDERED: EPINEPHRINE INH 0.5 ML VIAL IH STA (23:44)
[2017-09-09] MEDS ORDERED: LORazepam 2 MG/ML VIAL IV ONE (00:31)
[2017-09-09] MEDS: PIPER/TAZO/NS 3.375gm 3.375 GM/100 ML BAG IVPB SCH ×3 (01:02→17:00)
[2017-09-09] MEDS: IPRATROPIUM BROM 0.5MG/2.5ML NEB SCH ×6 (03:30→23:53)
[2017-09-09] MEDS: ALBUTEROL 2.5 MG/3 ML NEB SOL NEB PRN ×2 (03:31→08:39)
[2017-09-09 04:47] LABS: Absolute Lymphocytes (CBC) 0.3 K/uL (0.7-4.9); Absolute Monocytes 2.7 K/uL (0.1-1.3); Absolute Neutrophil 18.1 K/uL (1.8-8.0); Basophils % 0.1 % (0-1.3); Hematocrit 36.4 % (36.0-45.0); Lymphocytes % 1.4 % (15.3-44.8); MCH 28.8 pg (27.0-35.0); MCV 90.6 fL (80-100); MPV 9.2 fL (7.6-11.3); Monocytes % 12.8 % (3.3-12.3); RBC Red Blood Cell Count 4.02 M/uL (3.86-4.86)
[2017-09-09 04:54] LABS: Magnesium 2.2 mg/dL (1.8-2.5); Potassium 4.2 mEq/L (3.6-5.0)
[2017-09-09 06:09] VITALS: BMI 29.0
[2017-09-09 06:24] LABS: Blood Morphology Comment NOT SEEN (NOT SEEN); Platelet Estimate ADEQ
[2017-09-09] MEDS: TERBINAFINE HCL 250 MG TAB PO SCH (09:00)
[2017-09-09] MEDS: HOME MED 1 EA UNK (Fluticasone/Vilanterol [Breo Ellipta 200-25 Mcg Inh] 1 PUFF) IH SCH (09:00)
[2017-09-09] MEDS: CLOPIDOGREL 75 MG TABLET PO SCH (09:00)
[2017-09-09] MEDS: HOME MED 1 EA UNK (Umeclidinium Bromide [Incruse Ellipta] 1 PUFF) IH SCH (09:00)
[2017-09-09] MEDS: PANTOPRAZOLE 40MG TABLET PO SCH (09:00)
[2017-09-09] MEDS ORDERED: HALOPERIDOL LACT 5 MG/ML INJ IV PRN (09:00)
[2017-09-09 09:28] LABS: Arterial Blood Carboxyhemoglob 1.3 % (0-1.5)
--- NOTE | 2017-09-09 09:44 | RAD REPORT ---
EXAM DESCRIPTION: RAD - Chest Single View - 09/09/2017 9:32 am CLINICAL HISTORY: Respiratory distress COMPARISON: 09/07/2017 FINDINGS: Portable technique limits examination quality. There has been significant worsening in bibasilar lung aeration since the comparative examination. Ri ght lower lobe pulmonary opacity is moderately worsened and there has been development of a moderate left lower lobe opacity is well since the comparative study. The heart is mildly enlarged. No displac ed fractures. IMPRESSION: Significant worsening bibasilar lung aeration relative to 09/07/2017 comparison. Finding s likely indicate bibasilar pneumonia or aspiration.
--- NOTE | 2017-09-09 15:27 | PN ---
Date of Progress Note: 09/09/2017 Patient seen, examined, chart reviewed, and case discussed with RN. Subjective: The patient had an acute deterioration overnight, had to be placed back on BiPAP. The patient more confused and agitated. Did have some owning, received Ativan and Benadryl last night. Review of Systems: Limited due to patient's medical condition, however, respiratory status has deteriorated as has her mental status. Medications: Reviewed. Physical Examination: Vital Signs: Temperature 97.8, heart rate 95, blood pressure 148/88, respirations 20, O2 97% now on BiPAP. General: Asleep, but arousable, confused, in some mild respiratory distress, elderly ill-appearing female. CV: S1, S2. No murmurs. Peripheral pulses are present bilaterally. Respiratory: Diminished breath sounds at the bases. Some rhonchi. Mild wheezing. The patient is slightly tachypneic. Use of accessory muscles is present. Gastrointestinal: Abdomen is soft, nontender, nondistended. Positive bowel sounds. No guarding or rigidity. Extremities: No clubbing, cyanosis, or edema. Neuro: The patient moves all 4 extremities, confused, able to follow some commands. Laboratory Data: Sodium 142, potassium 4.2, chloride 113, CO2 25, BUN 22, creatinine 0.82, glucose 176, calcium 8.9, magnesium 2.2. ABG; pH 7.34, pCO2 49.8, pO2 181, bicarb 26. WBC 21.1, H and H 11.6/36.4, platelets 202, neutrophils 85%. Blood culture show no growth to date. Urine culture, no growth. Chest x-ray personally reviewed shows significant worsening bibasilar lung aeration relative to 09/07. Findings indicate bibasilar pneumonia or aspiration. Assessment: An 86-year-old female with: 1. Acute respiratory distress with hypercapnia. The patient had improved yesterday, was off BiPAP, however, overnight has deteriorated. Chest x-ray this morning shows worsening basilar aeration with more opacity developing may be component of aspiration. The patient had a modified barium swallow study done and has been placed on a modified diet. 2. Bibasilar pneumonia, likely aspiration. We will continue IV antibiotics. Follow up with sputum cultures. 3. Dysphagia. The patient had modified barium swallow study and is now on modified diet, chopped diet and have thickened liquids. 4. Chronic atrial fibrillation, controlled ventricular rate. Continue anticoagulation. 5. Coronary artery disease [place] artery and [place] heart without angina, stable. 6. Elevated troponin level, likely secondary to demand mismatch hypoxia. No chest pain. 7. Hypokalemia. We will replace and monitor. 8. Hypotension. Blood pressure improved, possible hypertensive shock. 9. Gastrointestinal and deep venous thrombosis prophylaxes with PPIs. The patient already taken Xarelto. Plan: Continue antibiotics. Follow up on cultures. We will obtain ABG. Guarded prognosis SA/MODL Voice ID: [id number] Report ID: [id number] MTDNikos
[2017-09-09] MEDS: RIVAROXABAN 15 MG TABLET PO SCH (21:20)
[2017-09-09] MEDS: ATORVASTATIN 10 MG TAB PO SCH (21:20)
[2017-09-09] MEDS: LEVOTHYROXINE SOD 0.112 MG TAB PO SCH (21:21)
[2017-09-09] MEDS: CETIRIZINE HCL 5 MG TABLET PO SCH (21:21)
[2017-09-09] MEDS: MONTELUKAST 10 MG TAB PO SCH (21:21)
[2017-09-09] MEDS ORDERED: METHYLPREDNISOLONE 125 MG INJ IV ONE (23:18)
[2017-09-09] MEDS ORDERED: DIPHENHYDRAMINE 50 MG/ML VIAL IV ONE (23:18)
[2017-09-10] MEDS ORDERED: LORazepam 2 MG/ML VIAL IV ONE ×4 (00:47→06:50)
[2017-09-10] MEDS ORDERED: PIPER/TAZO/NS 3.375gm 3.375 GM/100 ML BAG ONE (01:50)
[2017-09-10] MEDS ORDERED: EPINEPHRINE INH 0.5 ML VIAL IH STA (02:32)
[2017-09-10] MEDS ORDERED: EPINEPHRINE INH 0.5 ML VIAL IH ONE (02:37)
[2017-09-10] MEDS: IPRATROPIUM BROM 0.5MG/2.5ML NEB SCH ×3 (02:47→07:22)
[2017-09-10] MEDS: PIPER/TAZO/NS 3.375gm 3.375 GM/100 ML BAG IVPB SCH ×2 (03:22→09:00)
[2017-09-10 04:26] LABS: Absolute Lymphocytes (CBC) 0.3 K/uL (0.7-4.9); Absolute Monocytes 1.1 K/uL (0.1-1.3); Absolute Neutrophil 14.7 K/uL (1.8-8.0); Basophils % 0.2 % (0-1.3); Hematocrit 33.8 % (36.0-45.0); MCH 28.8 pg (27.0-35.0); MCV 90.7 fL (80-100); MPV 9.2 fL (7.6-11.3); Monocytes % 6.8 % (3.3-12.3); RBC Red Blood Cell Count 3.73 M/uL (3.86-4.86)
[2017-09-10 05:01] LABS: Albumin 3.1 g/dL (3.2-5.5); Bilirubin Total 0.8 mg/dL (0.3-1.2); Potassium 3.9 mEq/L (3.6-5.0); Protein, Total 6.2 g/dL (6.0-8.3)
[2017-09-10] MEDS ORDERED: KCL 20 MEQ/100 mL IVPB 20 MEQ/100 ML BAG IV SCH (06:00)
[2017-09-10] MEDS ORDERED: NA CHLORIDE 0.9% 250 ML ONE (06:55)
[2017-09-10 07:19] VITALS: TEMP 97
[2017-09-10] MEDS: ALBUTEROL 2.5 MG/3 ML NEB SOL NEB PRN (07:22)
[2017-09-10] MEDS ORDERED: HALOPERIDOL LACT 5 MG/ML INJ IV PRN ×2 (08:37→10:14)
[2017-09-10] MEDS ORDERED: METOPROLOL TARTRATE 5 MG/5 ML INJ IV STA (08:37)
[2017-09-10] MEDS: PANTOPRAZOLE 40MG TABLET PO SCH (09:00)
[2017-09-10] MEDS: HOME MED 1 EA UNK (Fluticasone/Vilanterol [Breo Ellipta 200-25 Mcg Inh] 1 PUFF) IH SCH (09:00)
[2017-09-10] MEDS: CLOPIDOGREL 75 MG TABLET PO SCH (09:00)
[2017-09-10] MEDS: HOME MED 1 EA UNK (Umeclidinium Bromide [Incruse Ellipta] 1 PUFF) IH SCH (09:00)
[2017-09-10] MEDS: TERBINAFINE HCL 250 MG TAB PO SCH (09:00)
[2017-09-10 09:02] VITALS: BP 124/93
[2017-09-10] MEDS ORDERED: HYDROMORPHONE HCL 2 MG/ML inj IV PRN (10:13)
[2017-09-10] MEDS ORDERED: LORazepam 2 MG/ML VIAL IV PRN (10:14)
[2017-09-10] MEDS ORDERED: DIPHENHYDRAMINE 50 MG/ML VIAL IV PRN (10:14)
--- NOTE | 2017-09-10 11:17 | P.PN ---
Subjective Date of Service: 09/10/17 Chief Complaint: Resp failure Subjective: Worsening (pts condition has deteriorated. More SOb. altered mental status. Family wants comfort care only) Review of Systems is unable to be obtained Physical Examination - Vital Signs Temperature: 97 F Blood Pressure: 124/93 Pulse: 142 Respirations: 20 Pulse Ox (%): 94 - Physical Exam General: Unresponsive Respiratory: Expiratory wheezes Cardiovascular: No edema, Regular rate/rhythm - Studies Microbiology Data (last 24 hrs): 09/07/17 00:30 Catheterized Urine [place] Count - Final <10,000 CFU/ML. 09/07/17 00:30 Catheterized Urine - Final Assessment & Plan - Problems (Diagnosis) (1) Pneumonia Onset Date: 09/07/17 Current Visit: Yes Status: Acute Plan: Pt worse. On Zosyn.CXRY RLL consolidation. FAmily refuced BIPA . Pt DNRWBC improving ABG hypoxemia and hypercapnea,. Culltures neg. Add trial of steroids.CW zosyn Qualifiers: Pneumonia type: aspiration pneumonia Aspiration pneumonia type: unspecified Laterality: right Lung location: lower lobe of lung Qualified Code(s): J69.0 - Pneumonitis due to inhalation of food and vomit
[2017-09-10] MEDS ORDERED: METHYLPREDNISOLONE 40 MG INJ IV SCH (12:00)
[2017-09-10 14:20] VITALS: O2SAT 92
--- NOTE | 2017-09-10 14:52 | PN ---
Subjective: The patient seen and examined, chart reviewed and case discussed with RN. The patient has had an acute deterioration in her status since yesterday. She continues to be on a Ventimask and is very anxious, not wanting to keep the mask on. Family members present including medical power of computer drafter and who do not wish to see the patient in so much suffering. The patient is already DNR. They wish to make the patient care and comfort and initiate care and comfort measures. The patient is in some acute respiratory distress. They understand that the patient has very low lung reserve and will likely deteriorate quickly and likely pass away and without acute treatment and with initiation of care comfort measures. They understand they are ready for her. They do not wish to see her in any further suffering. Review of Systems: Limited due to patient's medical condition. Medications: Reviewed. Physical Examination: Vital Signs: Temperature 97, heart rate 142, blood pressure 124/93, respirations 27, O2 94% on Ventimask with FiO2 of 50%. General: The patient is awake, alert, very agitated, in acute respiratory distress. CV: S1, S2, irregularly irregular rapid ventricular rate. Peripheral pulses present. Respiratory: Diminished breath sounds. Some rhonchi and wheezing heard. Gastrointestinal: Abdomen is soft, nontender, nondistended. Positive bowel sounds. Extremities: No clubbing, cyanosis. Mild pedal edema. Neurologic: Nonfocal. Laboratory Data: Sodium 145, potassium 3.9, chloride 112, CO2 28, BUN 19, creatinine 0.72, glucose 184, calcium 8.9, AST 49, ALT 37, alkaline phosphatase 60, albumin 3.1. WBC 16.2, H and H 10.7 and 33.8, platelets 187, neutrophils 91 %. Blood cultures, no growth to date. Assessment: An 86-year-old female with: 1. Acute respiratory distress with hypercapnia. The patient has been requiring Venturi mask likely secondary to worsening aspiration pneumonia. 2. Bibasilar pneumonia, likely aspiration type. Continue with IV antibiotics and follow up blood culture show no growth to date. We will continue to follow up. 3. Dysphagia. Modified barium swallow study was done. The patient is placed on modified diet, however, currently n.p.o. due to risk of further aspiration. 4. Chronic atrial fibrillation, rapid ventricular rate. Lopressor 5 mg IV as needed for heart rate control. 5. Coronary artery disease [place] artery and [place] heart without angina. 6. Elevated troponin level, likely secondary to demand mismatch, no chest pain. 7. Hypokalemia, replace and monitor. 8. Hypertension. Blood pressure is significantly better. 9. Gastrointestinal and deep venous thrombosis prophylaxes with PPI. The patient is on Xarelto. Plan: The patient acutely deteriorating and agitated. The patient trying to take her mask off. Family does not wish to see her in this condition. They want to initiate care and comfort measures. They understand that this will likely be terminal for her, they voiced understanding. All daughters and at the bedside. The case also discussed with Dr. May, who will initiate care and comfort measures. We will likely expect patient deteriorate very quickly. ADDENDUM: Patient was placed on care and comfort measures. She became less agitated. She had agonal breathing and deteriorated fairly quickly. She at approximately 12:36 pm /MILE Voice ID: [id number] Report ID: [id number]
== END 2017-09-10 12:35 | disposition expired | DRG 179 ==
LOC: ER 23:50 → ERHOLD 09-07 01:25 → 2ND 09-07 12:35 → ERHOLD 09-07 12:35 → 3RD-ICU 09-08 04:06 → 4TH 09-08 09:40
PROVIDERS: ADMIT Internal Medicine; ATTEND Internal Medicine
PROC: 0T9B70Z Drainage of Bladder with Drainage Device, Via Natural or Artificial Opening (ICD-10-PCS; 2017-09-06)
PROC: 5A09357 Assistance with Respiratory Ventilation, Less than 24 Consecutive Hours, Continuous Positive Airway Pressure (ICD-10-PCS; principal; 2017-09-07)
DX: J69.0 Pneumonitis due to inhalation of food and vomit (principal); R06.03 Acute respiratory distress; R09.02 Hypoxemia; E87.6 Hypokalemia; I95.9 Hypotension, unspecified; I48.2 Chronic atrial fibrillation; I50.9 Heart failure, unspecified; R45.1 Restlessness and agitation; I25.10 Atherosclerotic heart disease of native coronary artery without angina pectoris; I10 Essential (primary) hypertension; G30.9 Alzheimer's disease, unspecified; F02.80 Dementia in other diseases classified elsewhere, unspecified severity, without behavioral disturbance, psychotic disturbance, mood disturbance, and anxiety; Z66 Do not resuscitate
CPT/HCPCS: 36415; 51702; 71045; 74230; 80048; 80053; 80076; 80202; 81003; 82550; 82553; 82805; 83690; 83735; 83880; 84145; 84484; 85025; 85610; 85730; 87040; 87086; 87088; 93005; 94640; 94660; 97163; 99291; J1100; J1170; J1630; J1650; J2405; J2543; J2920; J2930; J7030